=== PATIENT | female | born 1975 | race Caucasian/White ===

== ENCOUNTER 2016-12-14 17:04 | Emergency (ER) | payer OTHER ==
[2016-12-14 18:09] LABS: Urine Appearance Clear; Urine Bilirubin Negative (NEGATIVE); Urine Color Yellow; Urine Ketone Negative (NEGATIVE)
[2016-12-14 18:10] LABS: Urine Bacteria None Seen; Urine Blood Negative /ul (NEGATIVE); Urine Nitrite Negative (NEGATIVE); Urine Protein Negative (NEGATIVE); Urine RBC None Seen /hpf (0-5); Urine Specific Gravity 1.005 SP.GR. (1.005-1.010); Urine Urobilinogen Normal (NORMAL); Urine WBC None Seen /hpf (0-5); Urine pH 6.5 pH (5.0-7.0)
[2016-12-14] MEDS ORDERED: IBUPROFEN 400 MG TABLET PO ONE ×2 (18:14→20:11)
[2016-12-14] MEDS ORDERED: ALBUTEROL SULFATE 2.5 MG/3 ML VIAL.NEB IH ONE (18:14)
[2016-12-14] MEDS ORDERED: IBUPROFEN 400 MG TABLET ONE ×2 (18:14→20:13)
[2016-12-14] MEDS ORDERED: ALBUTEROL SULFATE 2.5 MG/0.5 ML VIAL.NEB IH ONE (18:17)
--- NOTE | 2016-12-14 20:12 | ERNOTE ---
ER Female HPI Date of Service: 12/14/16 Stated Complaint: LT SIDE&BACK PAIN Presenting Symptoms: other - mid back pain radiating into left shoulder with cough and SOB Time Seen by Provider: 12/14/16 17:39 Source: patient Exam Limitations: no limitations Immunizations: IMMUNIZATION HX Immunizations Up to Date Yes History of Influenza Vaccine No Hx Pneumococcal Vaccination No Allergies/Adverse Reactions: Allergies No Known Allergies Allergy (Unverified 12/14/16 17:18) Home Medications: HOME MEDICATIONS Albuterol Sulfate [Ventolin Hfa] 1 puff IH QID PRN #1 hfa.aer.ad 12/14/16 [Last Taken Unknown] Ibuprofen 800 mg PO TID PRN #30 tablet 12/14/16 [Last Taken Unknown] Pain Score #1 Pain Score: 7 Pain Score #2 Pain Score: 2 - History of Present Illness Narrative: Patient is a 41 year old female who presents to the ED with complaints of pain to mid back radiating up into left shoulder. States she noticed it Thursday and has been getting progressively worse. States pain so severe it woke her up last night. Patient has had dry mostly non productive cough with occasional green sputum. Patient does admit to smoking and states that she drove from [place] 17 hours straight to come be with her father in law. States pain is worse with inspiration. Denies fever, NVD, chills. Date (Duration): 12/19/16 Timing: Present: constant, getting worse Quality: Present: moderate Onset Location: Present: other - mid back Radiation: Present: other - up into left scapular region and into left shoulder Activities at Onset: Present: none Prior Abdominal Problems: Present: none Modifying Factors - (Improves): Present: rest, other - Aleve and hot shower Modifying Factors - (Worsens): Present: breathing - inspiration, coughing, movement Associated Symptoms: Absent: fever/chills, diaphoresis, nausea, vomiting, abdominal pain, dysuria, urinary frequency, loss of bladder control, low back pain, mass Review of Systems - Review of Systems Constitutional: Present: no symptoms reported. Absent: recent illness, fever, chills, diaphoresis, weakness, fatigue EYE: Present: no symptoms reported. Absent: eye pain, eye discharge, blurred vision, double vision, vision changes ENT: Present: no symptoms reported. Absent: ear pain, ear discharge, pulling on ears, nose pain, nose congestion, sore throat, throat swelling Respiratory: Present: shortness of breath, cough. Absent: orthopnea, wheezing, stridor Cardiology: Absent: palpitations, syncope, edema Gastrointestinal/Abdominal: Present: no symptoms reported Genitourinary: Present: no symptoms reported Musculoskeletal: Present: back pain Skin: Present: no symptoms reported Neurological: Present: no symptoms reported Endocrine: Present: no symptoms reported Hematologic/Lymphatic: Present: no symptoms reported Psych: Present: no symptoms reported - Patient's Past Medical History Patient History - Medical: No pertinent hx Patient History - Cardiac/Respiratory: No pertinent hx Patient History - Cancer: No Hx of Cancer Patient History - Surgical Procedures: Tubal Ligation, T & A, Other Patient History - Other: None LMP (females 10-50): now - Social History Living Situations: home Psych History: No pertinent hx Smoking Status: Current every day smoker - Immunizations Immunizations Up to Date: Yes Hx Pneumococcal Vaccination: No History of Influenza Vaccine: No Physical Exam - Physical Exam General Appearance: Present: wd/wn, alert, no apparent distress Head Exam: Present: normal inspection, no evidence of injury Eye Exam: Normal inspection: bilateral, PERRL: bilateral, EOMI: bilateral Ears, Nose, Throat: Present: normal ENT inspection, normal pharynx. Absent: pharyngeal erythema, pharyngeal swelling, tonsillar exudate, tonsillar swelling , dry mucous membranes Neck: Present: normal inspection, nontender, supple, full range of motion. Absent: lymphadenopathy (R), lymphadenopathy (L) Respiratory: Present: no respiratory distress, normal breath sounds, no accessory muscle use, lungs clear, other - minor chest and back tenderness Cardiovascular/Chest: Present: regular rate, rhythm, no murmur, normal peripheral pulses Peripheral Pulses: N=norm/S=strong/W=weak/B=bound/A=absent: Radial (R): Normal, Radial (L): Normal Gastrointestinal/Abdominal: Present: normal bowel sounds, nontender, nondistended, soft, no organomegaly Rectal Exam: Present: deferred Back Exam: Present: normal inspection, normal range of motion, no CVA tenderness , no vertebral tenderness Extremity Exam: Present: normal inspection, non-tender, normal range of motion, no edema Neurological Exam: Present: alert, oriented, normal mood/affect, no motor/ sensory deficits Skin Exam: Present: normal color, warm/dry Lymphatic Exam: Present: no adenopathy ED Progress - Results and Orders Patient's Lab Results:: I have reviewed the patient's lab results. - Vital Signs Patient's Vital Signs:: I have reviewed the patient's vital signs. Vital Signs: Vital Signs 12/14/16 12/14/16 17:14 20:04 Temperature 36.4 C L Pulse Rate 80 75 Respiratory 16 18 Rate Blood Pressure 144/102 123/78 O2 Sat by Pulse 99 96 Oximetry - X-Ray X-Ray #1 X-Ray: chest Interpretation: Reviewed by me X-ray Comments: Findings: There are remote right-sided rib fractures. Heart size and vascularity appear within normal limits. There is mild hyperinflation of the lung bridges. There are no focal infiltrates or effusions. IMPRESSION: NO ACUTE CARDIOPULMONARY DISEASE IDENTIFIED. - Progress/Reassessment Chief Complaint: Urinary Tract Problems Progress:: Pain free at discharge Departure Clinical Impression: Pleurisy - Departure Disposition: Home self-care Condition: Good Instructions: Pleurisy, [id number] Additional Instructions: High dose Ibuprofen as needed for pain. Force self to cough and take deep breaths to keep lung bridges open and reduce risk of pneumonia or infection. Inhaler as needed for shortness of breath. Return immediately if pain worsens and is unrelieved by ibuprofen or shortness of breath is worse Prescriptions: Albuterol Sulfate [Ventolin Hfa] 1 puff IH QID PRN #1 hfa.aer.ad PRN Reason: Shortness Of Breath/Wheezing Ibuprofen 800 mg PO TID PRN #30 tablet PRN Reason: Pain
[2016-12-14 20:29] VITALS: BP 122/76
== END 2016-12-14 20:28 | disposition home or self-care (01) ==
LOC: ER 17:04
DX: R09.1 Pleurisy (principal); Z72.0 Tobacco use